=== PATIENT | male | born 1960 | race Caucasian/White ===

== ENCOUNTER → 2018-11-16 07:48 | Outpatient (CLI) | payer SELFPAY ==
[2018-10-27 13:49] VITALS: BMI 31.3
--- NOTE | 2018-11-16 07:52 | ECHOD_ITS ---
Reason For Study: Arrhythmia Procedure This was a 2D Doppler, Color Flow transthoracic echocardiogram. Exam performed in department. Left Ventricle Normal LV size. The estimated ejection fraction is 45 %. Unable to assess diastolic dysfunction due to arrhythmia. There is mild global hypokinesis of the left ventricle. Atria The left atrium is moderately enlarged. The right atrium is moderately enlarged. Mitral Valve Normal mitral valve. Mild (1+) eccentric mitral valve insufficiency. Tricuspid Valve Normal tricuspid valve. Mild to moderate (1-2+) tricuspid valve insufficiency. Aortic Valve Normal aortic valve. Trisinus/trileaflet aortic valve. Trivial aortic valve insufficiency. Pulmonic Valve Normal pulmonic valve. Great Vessels Mildly dilated aortic root. The pulmonary artery is normal size. Normal inferior vena cava. Pericardium/Pleural No pericardial effusion. MMode/2D Measurements & Calculations LVIDd: 4.7 cm IVSd: 1.2 cm Ao root diam: 4.1 cm LVIDs: 3.5 cm LVPWd: 1.1 cm LA dimension: 4.6 cm RVDd: 3.7 cm FS: 25.5 % LAV(MOD-bp): 103.3 ml LVAd ap4: 29.5 cm2 SV(MOD-sp4): 52.9 ml LAV(MOD-bp) Indexed: 43.6 ml/m2 EDV(MOD-sp4): 97.7 ml LAV(MOD-sp2): 110.4 ml EDV(sp4-el): 94.4 ml LAV(MOD-sp4): 85.6 ml LVAs ap4: 19.4 cm2 ESV(MOD-sp4): 44.9 ml ESV(sp4-el): 46.3 ml EF(MOD-sp4): 54.1 % EF(sp4-el): 51.0 % SV(sp4-el): 48.1 ml LA A4 area: 27.6 cm2 RA A4 area: 25.0 cm2 Doppler Measurements & Calculations MV E max mauricio: 54.4 cm/sec Lat Peak E' Mauricio: 11.7 cm/sec Med Peak E' Mauricio: 8.3 cm/sec E/E' lat: 4.7 E/E' med: 6.5 MV V2 max: 62.0 cm/sec Ao V2 max: 68.5 cm/sec AI max mauricio: 316.1 cm/sec MV max P.5 mmHg Ao max P.9 mmHg AI max P.0 mmHg MV V2 mean: 32.9 cm/sec AI dec slope: 159.3 cm/sec2 MV mean P.53 mmHg AI P1/2t: 581.1 msec MV V2 VTI: 15.7 cm LV V1 max: 58.4 cm/sec PA V2 max: 46.1 cm/sec TR max mauricio: 218.1 cm/sec LV V1 max P.4 mmHg TR max P.0 mmHg Interpretation Summary Normal LV size. The estimated ejection fraction is 45 %. Unable to assess diastolic dysfunction due to arrhythmia. Mild (1+) eccentric mitral valve insufficiency. Mild to moderate (1-2+) tricuspid valve insufficiency. Mildly dilated aortic root. Ordering Physician: Ezekiel Lara Referring Physician: Abraham Kraus Performed By: Lance Mendosa RCS
== END ==
PROVIDERS: Family Provider Family Medicine; PCP Family Medicine; Referring Provider Internal Medicine Cardiovascular Disease; Visit Provider Internal Medicine Cardiovascular Disease
DX: I48.92 Unspecified atrial flutter (principal)
CPT/HCPCS: 93306

== ENCOUNTER 2018-12-28 06:32 | Day surgery (SDC) | payer SELFPAY ==
[2018-12-06 08:28] VITALS: BMI 31.9
[2018-12-28] VITALS (7 sets, daily range): BP systolic 100–119; BP diastolic 72–86; PULSE 79–98; RESP 16; TEMP 36.2–36.3; O2SAT 94–97; BMI 32.0
--- NOTE | 2018-12-28 07:43 | OP.ENDO_ITS ---
Patient Name: Vicente Elizalde Procedure Date: 12/28/2018 7:13 AM Date of : 1960 Age: 58 Procedure: Colonoscopy Indications: Screening for colorectal malignant neoplasm Providers: George Amador MD Medicines: See the Anesthesia note for documentation of the administered medications Patient Profile: This is a 58 year old male. Refer to note in patient chart for documentation of history and physical. Last Colonoscopy: more than 10 years ago. Complications: No immediate complications. Procedure: Pre-Anesthesia Assessment: - Prior to the procedure, a History and Physical was performed, and patient medications and allergies were reviewed. The patient's tolerance of previous anesthesia was also reviewed. The risks and benefits of the procedure and the sedation options and risks were discussed with the patient. All questions were answered, and informed consent was obtained. Prior Anticoagulants: The patient has taken no previous anticoagulant or antiplatelet agents. ASA Grade Assessment: II - A patient with mild systemic disease. After reviewing the risks and benefits, the patient was deemed in satisfactory condition to undergo the procedure. After I obtained informed consent, the scope was passed under direct vision. Throughout the procedure, the patient's blood pressure, pulse, and oxygen saturations were monitored continuously. The adult colonoscope was introduced through the anus and advanced to the cecum, identified by appendiceal orifice and ileocecal valve. The colonoscopy was performed without difficulty. The patient tolerated the procedure well. The quality of the bowel preparation was good. Scope In: 7:27:33 AM Scope Withdrawal Time 0 hours 6 minutes 5 seconds Scope Out: 7:39:00 AM Total Procedure Duration Time 0 hours 11 minutes 27 seconds Findings: The perianal and digital rectal examinations were normal. Pertinent negatives include normal prostate (size, shape, and consistency). A few small-mouthed diverticula were found in the sigmoid colon. Non-bleeding internal hemorrhoids were found during retroflexion. The hemorrhoids were mild. The exam was otherwise without abnormality. Impression: - Diverticulosis in the sigmoid colon. - Non-bleeding internal hemorrhoids. - The examination was otherwise normal. - No specimens collected. Recommendation: - Discharge patient to home. - Resume previous diet. - Continue present medications. - Repeat colonoscopy in 10 years for screening purposes. - Return to primary care physician PRN. Procedure Code(s): --- Professional --- G0121, Colorectal cancer screening; colonoscopy on individual not meeting criteria for high risk Diagnosis Code(s): --- Professional --- Z12.11, Encounter for screening for malignant neoplasm of colon K64.8, Other hemorrhoids K57.30, Diverticulosis of large intestine without perforation or abscess without bleeding CPT copyright 2017 [employer]. All rights reserved. The codes documented in this report are preliminary and upon estimator jewelry review may be revised to meet current compliance requirements. MD George Ibanez MD 12/28/2018 7:42:30 AM This report has been signed electronically. Number of Addenda: 0 Note Initiated On: 12/28/2018 7:13 AM
== END 2018-12-28 08:24 | disposition home or self-care (01) ==
LOC: EN 06:33 → AC 06:34
PROVIDERS: Family Provider Family Medicine; PCP Family Medicine; Referring Provider Surgery; Visit Provider Surgery
PROC: 0DJD8ZZ Inspection of Lower Intestinal Tract, Via Natural or Artificial Opening Endoscopic (ICD-10-PCS; CPT 45378; principal; 2018-12-28 07:25)
DX: Z12.11 Encounter for screening for malignant neoplasm of colon (principal); K57.30 Diverticulosis of large intestine without perforation or abscess without bleeding; K64.8 Other hemorrhoids; I48.0 Paroxysmal atrial fibrillation; I48.92 Unspecified atrial flutter; I34.0 Nonrheumatic mitral (valve) insufficiency; I36.1 Nonrheumatic tricuspid (valve) insufficiency; E06.9 Thyroiditis, unspecified; G47.30 Sleep apnea, unspecified; Z79.899 Other long term (current) drug therapy; Z87.891 Personal history of nicotine dependence
CPT/HCPCS: 45378; J7120

== ENCOUNTER → 2022-07-07 | Outpatient (CLI) | payer SELFPAY ==
--- NOTE | 2022-07-07 07:43 | ECHOD_ITS ---
Reason For Study: AFIB Procedure This was a 2D Doppler, Color Flow transthoracic echocardiogram. The exam was of adequate technical quality. Exam performed in department. Left Ventricle Normal LV size. Left ventricular systolic function is lower limits of normal. The estimated ejection fraction is 50 %. Diastolic function is indeterminate. No regional wall motion abnormalities noted. Right Ventricle Normal RV size. Normal systolic function. Atria The left atrium is moderately enlarged. The right atrium is moderately enlarged. No doppler evidence for ASD. Mitral Valve There is no mitral annular calcification. Normal mitral valve. Mild (1+) mitral valve insufficiency. Tricuspid Valve Normal tricuspid valve. Mild tricuspid valve insufficiency. Right ventricular systolic pressure estimated to be 29 mmHg. Aortic Valve Trisinus/trileaflet aortic valve. Normal aortic valve. Trivial eccentric aortic valve insufficiency. Pulmonic Valve The pulmonic valve is not well visualized. Mild (1+) pulmonic valve insufficiency. Great Vessels Moderately dilated aortic root. Pericardium/Pleural No pericardial effusion. MMode/2D Measurements & Calculations LVIDd: 5.1 cm IVSd: 1.1 cm Ao root diam: 4.8 cm LVIDs: 3.7 cm LVPWd: 0.93 cm RVDd: 3.6 cm FS: 28.1 % LAV(MOD-bp): 124.8 ml LVAd ap4: 32.7 cm2 SV(MOD-sp4): 47.6 ml LAV(MOD-bp) Indexed: 51.7 ml/m2 LVLd ap4: 8.4 cm LAV(MOD-sp2): 123.4 ml EDV(MOD-sp4): 107.2 ml LAV(MOD-sp4): 112.5 ml EDV(sp4-el): 107.4 ml LVAs ap4: 21.8 cm2 LVLs ap4: 7.2 cm ESV(MOD-sp4): 59.6 ml ESV(sp4-el): 56.2 ml EF(MOD-sp4): 44.4 % EF(sp4-el): 47.7 % SV(sp4-el): 51.2 ml LA A4 area: 32.4 cm2 LA dimension(2D): 4.8 cm RA A4 area: 29.9 cm2 Time Measurements MV dec time: 0.25 sec Doppler Measurements & Calculations MV E max mauricio: 51.4 cm/sec Lat Peak E' Mauricio: 14.5 cm/sec Med Peak E' Mauricio: 11.1 cm/sec E/E' lat: 3.5 E/E' med: 4.6 Ao V2 max: 77.8 cm/sec AI max mauricio: 328.0 cm/sec MV dec slope: 213.0 cm/sec2 Ao max P.4 mmHg AI max P.0 mmHg Ao V2 mean: 57.8 cm/sec Ao mean P.5 mmHg AI dec slope: 154.8 cm/sec2 Ao V2 VTI: 16.2 cm AI P1/2t: 620.8 msec LV V1 max: 60.7 cm/sec TR max mauricio: 228.5 cm/sec LV V1 max P.5 mmHg TR max P.9 mmHg LV V1 mean P.76 mmHg LV V1 mean: 40.3 cm/sec LV V1 VTI: 13.5 cm ECHO/Echo Complete Interpretation Summary Left ventricular systolic function is lower limits of normal. The estimated ejection fraction is 50 %. The left atrium is moderately enlarged. The right atrium is moderately enlarged. Mild (1+) mitral valve insufficiency. Mild tricuspid valve insufficiency. Trivial eccentric aortic valve insufficiency. Mild (1+) pulmonic valve insufficiency. Moderately dilated aortic root. Right ventricular systolic pressure estimated to be 29 mmHg. Diastolic function is indeterminate. Ordering Physician: Carlitos Olsen Referring Physician: Carlitos Olsen Performed By: Faye Sands RCS
== END | disposition home or self-care (01) ==
PROVIDERS: PCP Family Medicine; Referring Provider Internal Medicine Cardiovascular Disease; Visit Provider Internal Medicine Cardiovascular Disease
DX: I43 Cardiomyopathy in diseases classified elsewhere (principal); I48.0 Paroxysmal atrial fibrillation; I34.0 Nonrheumatic mitral (valve) insufficiency; I36.1 Nonrheumatic tricuspid (valve) insufficiency
CPT/HCPCS: 93306

== ENCOUNTER → 2022-08-10 | Outpatient (CLI) | payer SELFPAY | END | disposition home or self-care (01) | PROVIDERS: PCP Family Medicine; Visit Provider Internal Medicine Cardiovascular Disease | DX: Z00.00 Encounter for general adult medical examination without abnormal findings (principal) ==

== ENCOUNTER 2022-08-11 10:38 | Day surgery (SDC) | payer SELFPAY ==
--- NOTE | 2022-08-10 07:56 | HP.PCM_ITS ---
History and Physical Date of Admission: 08/11/22 [facility] [address] [place] [address] OFFICE VISIT Date of Service:? 06/23/22 MR#: [id number] Acct: [id number] Name:ARNOLD KNIGHT Rep #: [id number] : 1960 Provider: Dr. Carlitos Olsen MD Age/Sex:? 62/M ?Location: [facility] Status: Signed HPI [facility] History of Present Illness Details: This is a 62-year-old white male who presents today for outpatient cardiovascular consultation based upon concerns of atrial fibrillation status post [facility] EPS/RFA superimposed upon a history of a non-CAD related cardiomyopathy with findings of recurrent atrial fibrillation with a controlled ventricular response.? The patient's last outpatient cardiovascular visit appears to been on 11-24-2018.? Since that time he states he has not had cardiovascular follow-up.? He states somewhere along the way he had discontinued his cardiovascular medical management.? He has been following with his ranch supervisor for his thyroid disorder.? He states his ranch supervisor noted an irregular heart rate and referred him to his primary care physician group.? He was evaluated there recently.? There was concern he was in atrial fibrillation, however, an ECG was unable to be performed.? Thus he was referred back to cardiology for recurrent cardiovascular evaluation. He states that overall he feels he is done reasonably well.? He does note he may feel more tired and fatigued than what he did before.? He is not complaining of symptoms of angina pectoris and he has had no episodes suspicious for CHF or pulmonary edema.? There has been no near-syncope or syncope.? He does not necessarily sense any underlying palpitations or changes in his cardiac rate or rhythm. In the office today he had an ECG.? He was noted be in atrial fibrillation with poor R wave progression. He has undergone previous noninvasive and invasive cardiovascular studies.? This has included a transthoracic echocardiogram and diagnostic cardiac catheterization.? The studies are noted below. He underwent [facility] EPS/RFA in 2016.? The results of that study are unavailable for review.? He states following that he did return to atrial fibrillation and underwent a synchronized biphasic DC cardioversion.? He states he then went back into sinus rhythm.? He believes he has been in sinus rhythm until this recent detection of an irregular heart rate. Intake Vital Signs ? 06/23/2214:57 06/23/2215:01 Height 6 ft 1 in 6 ft 1 in Weight: ? 258 lb 9 oz BMI ? 34.1 BP ? 132/88 H Blood Pressure Location ? Lt brachial Position ? Sitting Respiration ? 16 Pulse ? 92 Pulse Source ? Auscultation Intake Visit Reasons:?A-FIB/REF. 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 Arthritis Cardiomyopathy in diseases classified elsewhere Chronic back pain Hypothyroidism Nonrheumatic mitral (valve) insufficiency Nonrheumatic tricuspid (valve) insufficiency Paroxysmal atrial fibrillation Persistent atrial fibrillation Rectal bleed Surgical History? History of arthroscopic knee surgery History of left heart catheterization (LHC) (05/05/16) History of meniscectomy of left knee History of meniscectomy of right knee (~2003) History of thyroidectomy Family History? Father Lung cancerMother Thyroid disorderSister Atrial fibrillation Social History? Smoking Status:? Former smoker how long ago did patient quit smoking:? 1979 alcohol intake:? never substance use type:? does not use caffeine:? No what type of physical activity do you participate in:? bicycling frequency:? 1-2 times per week ROS Const Const: Positive for fatigue (slightly increased); Negative for weakness, body ache, fever(s), headache(s), chills, frequent falls, night sweats, daytime sleepiness, difficulty sleeping, excessive sweating, weight gain, weight loss, increased appetite, poor appetite, anorexia or other Eyes Eyes: Negative for blurry vision or double vision ENT ENT: Negative for headache(s), dizziness or balance problems Cardio Chest Pain: No Palpitations: No Edema: None Muscle aches with walking: None Resp Respiratory: Negative for SOB with activity, SOB at rest, SOB orthopnea\SOB lyi ng down, Cough, Coughing up blood/hemoptysis, chest congestion, pain on inspiration, snoring, stridor, wheezing, crackles, paroxysmal nocturnal dyspnea or other Musc Musc: Negative for muscle aches/ myalgia, muscle weakness, joint pain or balance problems Neuro Neuro: Negative for dizziness, lightheadedness, near syncope, syncope, orthostatic symptoms, frequent falls, headache(s), weakness, confusion, memory loss, restless legs, blurry vision, double vision, vertigo, seizures, lack of coordination or other Endo Endo: Positive for fatigue (slightly increased); Negative for excessive sweating Cardiology Exam Const Appearance: cooperative, healthy appearing, comfortable, no acute distress, well developed and well groomed Nutritional Appearance: overweight Orientation: alert, awake and oriented x3 Head Head: normal to inspection, normocephalic and atraumatic Ears: hearing grossly normal bilaterally Nose: external nose normal Face and Sinus: face symmetric Eyes Eyelids: eyelids normal Conjunctivae: conjunctivae normal Pupils: PERRL EOM: EOM intact bilaterally Neck Neck: normal visual inspection and full ROM Carotids: normal carotid upstroke Chest Chest inspection: normal inspection of the chest, symmetric chest movement and normal respiratory effort Auscultation: Bilateral: Clear to Auscultation Cardio Palpation: normal PMI Rate: regular rate Rhythm: irregularly irregular Heart sounds: S1 normal and S2 normal GI GI: normal to inspection, soft and bowel sounds present Neuro General: patient alert, patient awake, patient oriented x3 and moves all extremities Skin Skin: no rashes or lesions noted Extremities Pulses: Normal: Right Radial Pulse and Left Radial Pulse Lower Extremity Edema: None: Bilateral Psych Psychological: normal affect Supplemental Info Supplemental Information Thoracic echocardiogram: 11-17-2018 Interpretation Summary Normal LV size. The estimated ejection fraction is 45 %. Unable to assess diastolic dysfunction due to arrhythmia. Mild (1+) eccentric mitral valve insufficiency. Mild to moderate (1-2+) tricuspid valve insufficiency. Mildly dilated aortic root. Cardiac cath: 05/05/2016 DATE OF SERVICE:? 05/05/2016 PROCEDURES: 1.? Left heart catheterization. 2.? Left ventriculography. 3.? Selective coronary angiography. INDICATION: The patient is a 55-year-old man with a history of paroxysmal atrial fibrillation as well as a dilated cardiomyopathy.? The present cardiac catheterization is undertaken to assess anatomy and to guide therapy. DESCRIPTION OF PROCEDURE: After informed consent was obtained, 1% Xylocaine was used to anesthetize the right radial area.? A 5-Bahraini Terumo sheath was placed without difficulty and side port flushed.? 2500 units of intravenous heparin was administered followed by intra-arterial cocktail of heparin, nitroglycerin and verapamil.? Following this, a 5-Bahraini Marielena catheter was inserted.? The left coronary ostium was identified and engaged and left coronary angiography performed in multiple views.? Following this, the catheter was removed and the same catheter was used to attempt to negotiate into the right coronary ostium.? This was, however, not selective and the catheter was exchanged for a 5-Bahraini 3DRC catheter.? The right coronary ostium was identified and engaged and right coronary angiography performed in multiple views.? Following this, the catheter was removed and a pigtail catheter was inserted.? Left ventriculogram was performed with 36 mL of contrast at 12 mL per second. Following this, all catheters were removed.? The sheath was removed.? A TR band was applied, hemostasis achieved. HEMODYNAMICS: The baseline heart rate was noted to be 103 beats per minute in atrial fibrillation. Aortic pressures were 107/81, left ventricular pressure was 109/12. POST ANGIOGRAM: Left ventricular pressure was 108/14.? Aortic pressures were 115/81. CORONARY ARTERIOGRAPHY: LEFT MAIN: The left main coronary artery was noted to be angiographically normal.? The vessel bifurcated into left anterior descending artery and left circumflex artery.? No significant stenosis was noted in this vessel. LEFT ANTERIOR DESCENDING ARTERY: The left anterior descending artery was a medium-sized vessel.? It gave off a first large proximal diagonal branch, which bifurcated.? The vessel then gave off a septal fur trimmer. ?Third diagonal branch was then noted, which did not have any significant stenosis. LEFT CIRCUMFLEX ARTERY: The left circumflex artery was a nondominant vessel.? It gave off a first small obtuse marginal branch and atrial circumflex branch, a second obtuse marginal branch and an AV groove branch.? These vessels did not have any significant stenosis noted therein. RIGHT CORONARY ARTERY: The right coronary artery was a large dominant vessel.? It gave off a conus branch, a sinoatrial branch.? The vessel continued and gave off a tiny acute marginal branch and then a posterior descending artery and a posterolateral vessel.? No significant stenosis was noted in this vessel. LEFT VENTRICULOGRAM: The left ventriculogram demonstrated global left ventricular systolic dysfunction, estimated ejection fraction of 25%.? There was 2+ mitral regurgitation noted. CONCLUSION: 1.? Cardiomyopathy. 2.? Estimated ejection fraction 25%. 3.? Left main coronary artery, which was noted to be normal. 4.? Dominant right coronary artery, which is noted to be normal. 5.? Nondominant left circumflex artery, which is noted to be normal. Based on the above angiographic findings, the patient will be started on anticoagulation and scheduled for interval DC cardioversion.? 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 The above has been explained to him.? He understands and agrees to proceed. Labs: ?? ? No Data to Display Diagnostics: ?? ? Electrocardiogram ? Echocardiogram ? Cardiac Catheterization ? Chest X-Ray ? Pulmonary: ?? ? No Data to Display Assessment and Plan Assessment and Plan (1) Paroxysmal atrial fibrillation: ?Status:?Chronic ?Plan: The patient appears to have returned to atrial fibrillation.? At the moment he does appear to have a controlled ventricular response. He has been initiated on anticoagulant therapy which she will continue at this time.? If he cannot afford a direct acting oral anticoagulant such as apixaban or rivaroxaban then he may need to return to warfarin/Coumadin which she states he was on once before. He will also have a follow-up transthoracic echocardiogram to reassess his atrial size and his ventricular size, wall motion, and systolic function to help guide further evaluation and care. As the patient's clinical course progresses he may be considered for in the future, once he is adequately anticoagulated, for another attempt at regaining sinus rhythm with a synchronized biphasic DC cardioversion. (2) Cardiomyopathy in diseases classified elsewhere: ?Status:?Chronic ?Plan: He does have a history of a non-CAD related cardiomyopathy. He had been on beta-alden therapy in the past. He states he is not on any other cardiovascular medical therapy at this time. He will undergo further evaluation with a transthoracic echocardiogram to reassess his left ventricular wall motion and systolic function and help guide additional medical management. (3) Nonrheumatic mitral (valve) insufficiency: ?Status:?Chronic ?Plan: Based upon his previous studies he has an element of MR/TR. He will be followed with echocardiographic studies. (4) Nonrheumatic tricuspid (valve) insufficiency: ?Status:?Chronic ?Plan: He will continue evaluation care as noted above. ? ? ? Orders: Orders 12 Lead EKG performed by [facility] Today I48.0 - Paroxysmal atrial fibrillation ? Echo Complete Today I34.0 - Nonrheumatic mitral (valve) insufficiency, I36.1 - Nonrheumatic tricuspid (valve) insufficiency, I43 - Cardiomyopathy in diseases classified elsewhere, I48.0 - Paroxysmal atrial fibrillation ? Plan Details Additional Comments: An attempt will be made to retrieve his recent laboratory studies from his PCP and/or ranch supervisor. The above was discussed with him.? He was agreeable to this approach. Thank you for allowing me to participate in the care of your patient.? Please don't hesitate to call if any issues arise. This note was generated using a voice recognition system and there may be incorrect words, spelling or punctuation that were not noted when reviewing the office note prior to saving. Follow Up: ? ? 06/23/22 (copy of endocrinology labs (Dr. Edd Prince)) ? ? 6 Weeks (PFM ) COVID (Procedure Consent) Procedure Criteria Procedure Criteria: Yes Elective The surgeon/proceduralist and patient have discussed in detail the risk of exposure to and/or potential harm posed by the COVID-19 virus with having a surgery/procedure at this time versus the risk of? delaying the surgery/procedure. It is not possible to know either the risk of delaying the surgery or procedure or chance of getting an infection with perfect accuracy, but a joint decision was made between the patient and the surgeon/proceduralist ?to proceed at this time with the scheduled surgery/procedure as indicated on the consent form. Coding Level of Care Code Off vis,new,level 4 Diagnoses Paroxysmal atrial fibrillation? I48.0 Cardiomyopathy in diseases classified elsewhere? I43 Nonrheumatic mitral (valve) insufficiency? I34.0 Nonrheumatic tricuspid (valve) insufficiency? I36.1 Coding Level of Care Code Off vis,new,level 4 Diagnoses Paroxysmal atrial fibrillation? I48.0 Cardiomyopathy in diseases classified elsewhere? I43 Nonrheumatic mitral (valve) insufficiency? I34.0 Nonrheumatic tricuspid (valve) insufficiency? I36.1 06/23/22 1518 <Electronically signed by Carlitos Olsen MD> Date Carlitos Olsen MD Cosigner Signature: Date (if applicable) CC:? Dr. Abraham Kraus, DO ~ Assessment & Plan Addt'l Comments Addendum: The patient did undergo further evaluation with transthoracic echocardiogram on 07-07-2022. The results are noted below. Interpretation Summary Left ventricular systolic function is lower limits of normal. The estimated ejection fraction is 50 %. The left atrium is moderately enlarged. The right atrium is moderately enlarged. Mild (1+) mitral valve insufficiency. Mild tricuspid valve insufficiency. Trivial eccentric aortic valve insufficiency. Mild (1+) pulmonic valve insufficiency. Moderately dilated aortic root. Right ventricular systolic pressure estimated to be 29 mmHg. Diastolic function is indeterminate. The patient's case has been previously discussed and reviewed with the patient. The recommendation was made to proceed with further evaluation with synchronized biphasic DC cardioversion. The procedure and risk were discussed with the patient. He was agreeable to this approach. Status post review of the above there appears to be no significant change appreciated at this time. This note was generated using a voice recognition system and there may be incorrect words, spelling or punctuation that were not noted when reviewing the office note prior to saving.
--- NOTE | 2022-08-10 10:33 | RAD_ITS ---
STUDY: X-RAY CHEST REASON FOR EXAM: Male, 62 years old. Alertness of breath. TECHNIQUE: PA and lateral views of the chest. COMPARISON: 11/08/2016. FINDINGS: The lungs are clear and expanded. There is no demonstrated pleural abnormality. Normal size heart. Normal mediastinum and jennifer. Normal visualized pulmonary arteries. Normal visualized aortic arch and descending thoracic aorta. There are diffuse degenerative changes of the visualized thoracic spine. Normal visualized ribs, clavicles, and shoulders. There is no demonstrated abnormality of the visualized soft tissue structures of the upper abdomen. RAD/Chest PA and Lateral IMPRESSION: Degenerative changes, as described above. No demonstrated acute cardiopulmonary process. No major interval change. Electronically Signed: Chung Smallwood DO at 16:53 EDT ,
[2022-08-10 11:06] LABS: International Normalized Ratio 1.3; Prothrombin Time (Protime)PT. 15.5 SECONDS (11.7-14.9)
[2022-08-10 11:24] LABS: Anion Gap 8 (5-15); BUN 18 mg/dL (7-18); BUN/Creat Ratio 17.3 RATIO (10-20); Chloride 106 mmol/L (98-107); Creatinine, Serum 1.04 mg/dL (0.70-1.30); EST Glomerular Filtration Rate 76 mL/min (>60); Est Glom Filt Rate - Afr Amer 92 mL/min (>60); Glucose 96 mg/dL (74-106); Potassium 4.1 mmol/L (3.5-5.1); Sodium Level 139 mmol/L (136-145)
[2022-08-10 12:50] VITALS: BMI 28.6
--- NOTE | 2022-08-11 12:35 | CARDIOVERS_ITS ---
Cardioversion Cardioversion: Date: 08-11-2022 Procedure: Synchronized Biphasic DC Cardioversion Indications: Atrial fibrillation; status post EPS/RFA Consent: Per the Patient Anesthesia: per Dr. Kraus of pulmonology and critical care medicine with propofol 140 mg IV push total Procedure: Synchronized Biphasic DC Cardioversion: 200 J x 1: Result: Atrial fibrillation Synchronized Biphasic DC cardioversion: 300 J x 1: Result: Sinus rhythm; PACs Complications: no apparent complications This note was generated with Dynamic Yieldation software. It may contain incorrect words, spelling, and punctuation that were not noted in checking the note before signing.
--- NOTE | 2022-08-11 12:40 | PRO.PCM_ITS ---
Procedure Report Date of Procedure: 08/11/22 CONSCIOUS SEDATION REPORT DATE OF SERVICE: August 11, 2022 BRIEF HISTORY OF PRESENT ILLNESS: The patient is a 62-year-old male who presented to [facility] for an elective outpatient cardioversion due to underlying atrial fibrillation. The patient did report having undergone a prior cardioversion approximately 4 years ago. He denied any prior anesthetic complications. He does have a known history of obstructive sleep apnea with questionable PAP compliance. He is curr ently a non-smoker. His last surface echocardiogram demonstrated an ejection fraction of approximately 50%. The patient is currently anticoagulated on Xarelto. PHYSICAL EXAMINATION: VITAL SIGNS: Reviewed and were acceptable. GENERAL: The patient is a male, in no apparent distress, speaking in full sentences. HEENT: Normocephalic, atraumatic. Mucous membranes are moist and pink. Good mouth opening noted. Trachea is midline. Good neck mobility. CHEST: S1, S2 irregularly irregular. No murmurs, rubs or gallops were noted. LUNGS: Clear to auscultation bilaterally without appreciable wheezes, rales or rhonchi. ABDOMEN: Soft, nontender, nondistended. Positive bowel sounds. EXTREMITIES: There is no clubbing, cyanosis or edema. ASA Class: II DESCRIPTION OF PROCEDURE: After confirmation of informed consent, the patient's anesthesia plan was reviewed in detail. Propofol was chosen. Risks and benefits were reviewed and the patient agreed to proceed. At 1204, the patient was given his first bolus of propofol. In total, the patient required 140 mg of propofol to achieve an appropriate level of sedation, after which time, 2 separate attempts at cardioversion were undertaken, the first at 200 J and the second at 300 J. The latter was successful in achieving normal sinus rhythm. The patient was monitored until 1218, at which time he reached his baseline mental status and function. The patient tolerated the procedure well. COMPLICATIONS: None ESTIMATED BLOOD LOSS: None RECOMMENDATIONS: Okay to recover in usual fashion. Procedures Pulmonary 9xxxx: [id number] Con Sedation
== END 2022-08-11 13:15 | disposition home or self-care (01) ==
PROVIDERS: PCP Family Medicine; Referring Provider Internal Medicine Cardiovascular Disease; Visit Provider Internal Medicine Cardiovascular Disease
DX: I48.0 Paroxysmal atrial fibrillation (principal); I43 Cardiomyopathy in diseases classified elsewhere; E03.9 Hypothyroidism, unspecified; Z87.891 Personal history of nicotine dependence; Z79.899 Other long term (current) drug therapy
CPT/HCPCS: 36415; 71046; 80048; 85610; 92960; 93005; J7040

== ENCOUNTER → 2024-08-25 | Outpatient (CLI) | payer SELFPAY ==
--- NOTE | 2024-08-25 | KNEE_PTH ---
PATIENT: ARNOLD QUINTERO LOC: [facility] U#:[id number] AGE/SX: 64/M ROOM: RE08/25/[address]: Dr. Keshawn Sexton MD : 1960 BED: DIS: 08/25/2024 SPEC #: [id number] RECD: 08/25/24 13:42 STATUS: VASILIY REQ #: [id number] MALENA: 08/25/24 00:[address]: Keshawn Sexton DEPT: SURGICAL PATHOLOGY RECD BY: Albert Núñez ENTERED: 08/25/24 13:42 SP TYPE: TOTAL KNEE OTHR DR: Dr. Abraham Kraus, DO Tissues: Knee, NOS Procedures: Decalcification bone/plaque Surgery Specimen Level IV HEADER OPERATION: Left total knee replacement PRE-OP DIAGNOSIS: Unilateral primary osteoarthritis left knee TISSUE SUBMITTED: Left knee MICROSCOPIC DIAGNOSIS Bone and tissue of left knee, total knee resection: Severe degenerative joint disease. Mild synovial hyperplasia. Polarizable crystals consistent with pseudogout. AM:mr 08/30/2024 COMMENT Order says right knee. Called [facility] on 08/25/24 at 2:06pm and spoke to nurse. Nurse confirmed specimen is Left knee. MICROSCOPIC DESCRIPTION Slides are reviewed. GROSS DESCRIPTION Received is one container designated bone and soft tissue left knee. The specimen consists of multiple fragments of grey-yellow bone measuring in aggregate 13.0 x 14.0 x 4.0 cm. Two of the detached fragments of bone are consistent with loose bodies measuring in aggregate 3.5 x 2.0 x 1.0cm. Also in the specimen container are multiple fragments of yellow-white soft tissue measuring in aggregate 10.0 x 7.0 x 2.0 cm. A number of bony fragments contain articular surfaces consistent with tibial plateau and femoral condyle and displaying prominent osteophyte formation, eburnation and bone erosion. Cardiac Cath Lab Radiology Technologist sections are submitted in two cassettes as follows: 1 - soft tissue, 2 - bone after decalcification. / DANIEL. 08/25/2024 TC:5 CPT: 40610, 33482
== END | disposition home or self-care (01) ==
LOC: LABSPEC 13:15
PROVIDERS: PCP Family Medicine; Referring Provider Orthopaedic Surgery; Visit Provider Orthopaedic Surgery
DX: M17.12 Unilateral primary osteoarthritis, left knee (principal)
CPT/HCPCS: 88305; 88311